=== PATIENT | female | born 2000 | race Caucasian/White ===

== ENCOUNTER → 2020-03-14 | Outpatient (CLI) | payer BC ==
--- NOTE | 2020-03-14 18:44 | CONS ---
CONSULTATION DATE OF SERVICE: 03/14/2020 This is a 20-year-old lady who has been evaluated in [facility] for significant excessive daytime sleepiness and snoring. HISTORY OF PRESENT ILLNESS/SLEEP-WAKE EVALUATION: Patient's usual sleep schedule on weekdays is from 11 p.m. to 7 a.m. and on weekends from midnight or 1 a.m. until 8:30 a.m. No problems with falling asleep, although she has a TV in the bedroom. She usually sleeps on the stomach position and snores. She wakes up from sleep up to 4 times with up to 3 episodes of nocturia. Positive history of sleeptalking, episodes of panic attacks at night. In the morning she wakes up tired, falling asleep during the day, may see vivid dreams during naps, which she usually takes at 2 or 3 p.m. up to 2 times a day. She usually does not feel refreshed after naps, but does see some vivid dreams during naps. No history of hypnagogic hallucinations during the night, cataplexy or sleep paralysis. PAST MEDICAL HISTORY: Positive for anxiety and depression. PAST SURGICAL HISTORY: Adenoidectomy and ear tube insertion. MEDICATIONS: Prozac and control pills. SOCIAL HISTORY: Negative for smoking. Alcohol consumption occasional. FAMILY HISTORY: Hypertension, heart problems, emphysema, snoring, diabetes, mental illness, arthritis. REVIEW OF SYSTEMS: Multiple awakenings from sleep, significant excessive daytime sleepiness. Morton Sleepiness Scale 15. PHYSICAL EXAMINATION: GENERAL: A pleasant lady without distress. VITAL SIGNS: BP 104/62, HR 82, RR 15, height 5 feet, 1/2 inch, weight 186.4 pounds, body mass index 35.7, temperature 98.2, oxygen saturation at room air 99%. HEENT: PERRLA, EOMI. Evaluation of oropharynx showed tongue protrudes midline. Mallampati II. NECK: Supple. No JVD. Thyroid is not palpable. Neck is 14 inches in circumference. LUNGS: Clear to percussion and to auscultation. Good air exchange. No wheezing or rhonchi. HEART: S1, S2 regular. No murmurs, gallops or rubs. ABDOMEN: Obese. EXTREMITIES: No clubbing or cyanosis. HEAT READER: Awake, alert, and oriented X3. Cranial nerves 2 to 7 intact. There is no fasciculation or atrophy. noted. No focal deficits observed. IMPRESSION: 1. Snoring, multiple awakenings from sleep with nocturia, sleepiness; possible obstructive sleep apnea-hypopnea syndrome. 2. Significant excessive daytime sleepiness. Morton Sleepiness Scale increased at 15. The patient may take up to 2 naps a day with positive history of vivid dreams during naps. Differential diagnosis should include hypersomnia, including narcolepsy without cataplexy. 3. Obesity. BMI 35.7. 4. History of depression and anxiety. 5. Status post adenoidectomy. PLAN: 1. Polysomnography for evaluation of patient's breathing during sleep. 2. CPAP/BiPAP titration if sleep study confirms obstructive sleep apnea-hypopnea syndrome. 3. Preferable position during sleep on the side. 4. No driving if patient feels any sleepiness. 5. I will see patient for follow up visit to explain results of testing and following plan. 6. Multiple sleep latency test if sleep study is negative for obstructive sleep apnea- hypopnea syndrome for objective evaluation of patient's symptoms of significant excessive daytime sleepiness. Thank you very much for allowing me to participate in the management of your patient. Sincerely, Eric Bueno MD, PhD, FAASM Diplomat of [employer] [facility] [place] MMODL / LUAN: [id number] /
== END | disposition home or self-care (01) ==
LOC: SLEEP 15:04
PROVIDERS: ATTEND Internal Medicine
DX: G47.9 Sleep disorder, unspecified (principal); R06.83 Snoring; E66.9 Obesity, unspecified; Z86.59 Personal history of other mental and behavioral disorders; Z98.890 Other specified postprocedural states
CPT/HCPCS: 99211

== ENCOUNTER → 2020-06-26 | Outpatient (CLI) | payer BC ==
--- NOTE | 2020-06-26 20:41 | SFUN ---
SLEEP CENTER FOLLOW UP NOTE DATE OF SERVICE: 06/26/2020 20-year-old lady who has been followed in Sleep Center for treatment of obstructive sleep apnea-hypopnea syndrome and sleepiness. Recently patient had a home sleep apnea test which showed moderate obstructive sleep apnea with apnea-hypopnea index 22.1, and then patient was started on treatment with CPAP. After using CPAP, the patient feels better. Sleepiness is less than before. She feels more alert during the day. Previously Mitchell Sleepiness Scale was 15. Today it is 5. But she still sometimes feels sleepy during the day. I checked her CPAP unit. Range of the pressure 5-20, average pressure 9.1 cm of water, usage 29/30 nights and 18/30 nights more than 4 hours. Average usage 4.4 hours. Apnea- hypopnea index 1.1. MEDICATIONS: Prozac, control pill. PHYSICAL EXAM: Patient in no distress, BP 113/74, HR around 100. RR 15. Weight 189, temp 97.2, oxygen saturation at room air 99%. HEENT: PERRLA, EOMI, evaluation of oropharynx showed tongue protrudes midline. NECK: Supple, no JVD. Thyroid is not palpable. LUNGS: Clear to percussion and to auscultation. Good air exchange. No wheezing or rhonchi. HEART: S1, S2 regular. No murmurs, gallops, or rubs. ABDOMEN: Slightly obese. Soft and nontender. Bowel sounds are present. No organomegaly appreciated. EXTREMITIES: No clubbing or cyanosis. DRAFTING SUPERVISOR: Awake, alert, and oriented X3. Cranial nerves 2 to 7 intact. There is no fasciculation or atrophy. noted. No focal deficits observed. IMPRESSION: 1. Moderate obstructive sleep apnea-hypopnea syndrome. The patient demonstrated borderline compliance with treatment benefitting from treatment, improved her alertness during the day while using CPAP. 2. Obesity. 3. History of depression and anxiety. 4. Status post adenoidectomy. PLAN: 1. Patient will continue to use CPAP equipment every night for the whole night and she should take increased time of using machine. 2. Watching and losing weight. 3. Sleep hygiene with regular time in bed for 7 to have 8 hours. 4. No driving if feeling sleepiness. 5. I will see patient for follow-up visit in several months. If she will continue to have sleepiness, we may consider to proceed with multiple sleep latency test for objective evaluation of her symptoms of sleepiness and if necessary pharmacotherapy, but I believe at the present time it is not necessary and she should increase her time in bed with CPAP. Thank you very much for allowing me to participate in the management of your patient. Sincerely, Eric Bueno MD, PhD, FAASM Diplomat of [employer] [facility] [place] MMODL / YEVGENIYN: [id number] /
== END | disposition home or self-care (01) ==
LOC: SLEEP 14:25
PROVIDERS: ATTEND Internal Medicine
DX: G47.33 Obstructive sleep apnea (adult) (pediatric) (principal); E66.9 Obesity, unspecified; Z86.59 Personal history of other mental and behavioral disorders; Z90.09 Acquired absence of other part of head and neck; Z98.890 Other specified postprocedural states; Z99.89 Dependence on other enabling machines and devices

== ENCOUNTER → 2020-10-23 | Outpatient (CLI) | payer BC ==
--- NOTE | 2020-10-23 22:43 | SFUN ---
SLEEP CENTER FOLLOW UP NOTE DATE OF SERVICE: 10/23/2020 This is a 20-year-old lady who has been followed in Sleep Center for treatment of obstructive sleep apnea-hypopnea syndrome and significant excessive daytime sleepiness. During her previous visit, her Kirklin Sleepiness Scale was 15. The patient is using her CPAP equipment better, most of the nights now. She did not use it for a short period of time during the last month because she had COVID. Kirklin Sleepiness Scale today is 10. I checked her CPAP unit. Range of the pressure is from 5 to 20, average pressure 9.6. Usage is 23/30 nights and 19/30 nights for more than 4 hours. Average usage 5.4 hours per night. Leak is 26 L/minute. Apnea-hypopnea index is 0.7, which is normal. MEDICATIONS: Prozac 60 mg once a day, control pills. PHYSICAL EXAMINATION: GENERAL: A pleasant patient in no distress. VITAL SIGNS: BP 108/70, HR 94, RR 12, height 5 feet 1 inch, weight 187, temperature 97.5, oxygen saturation 98%. BMI 35.7. HEENT: PERRLA, EOMI. Evaluation of oropharynx showed tongue protrudes midline. NECK: Supple. No JVD. Thyroid is not palpable. LUNGS: Clear to percussion and to auscultation. Good air exchange. No wheezing or rhonchi. HEART: S1, S2 regular. No murmurs, gallops or rubs. ABDOMEN: Slightly obese. EXTREMITIES: No clubbing or cyanosis. CANNERY WORKER: Awake, alert, and oriented X3. Cranial nerves 2 to 7 intact. There is no fasciculation or atrophy. noted. No focal deficits observed. IMPRESSION: 1. Obstructive sleep apnea-hypopnea syndrome. The patient demonstrated borderline compliance with treatment, benefitting from treatment. 2. Status post recent COVID-19 infection. 3. Patient improved her alertness but still sometimes feels sleepiness during the day. Kirklin Sleepiness Scale today is 10. Additional possibility for differential diagnosis still includes hypersomnia. 4. Obesity. BMI 35.7. 5. History of depression and anxiety. 6. Status post adenoidectomy. Decision was made that we will not proceed with multiple sleep latency test at the present time. PLAN: 1. On CPAP therapy her alertness improved, so at the present time we will not proceed with multiple sleep latency test. If necessary, we will proceed in the future, depending on her clinical presentation. 2. We will keep CPAP pressure the same. 3. Patient should increase time in bed to at least 7-1/2 to 8 hours. 4. Patient will continue to use PAP equipment every night for the whole night. 5. Precautions related to driving. No driving if feeling sleepiness. 6. I will maintain all necessary prescription for PAP supplies including mask, tube, filters. 7. Watching weight. 8. Follow-up visit in 3 months or earlier if patient has any problems. Thank you very much for allowing me to participate in the management of your patient. Sincerely, Eric Bueno MD, PhD, FAASM Diplomat of [employer] [facility] [place] MMODL / LUAN: [id number] /
== END ==
LOC: SLEEP 13:23
PROVIDERS: ATTEND Internal Medicine
DX: G47.33 Obstructive sleep apnea (adult) (pediatric) (principal); Z99.89 Dependence on other enabling machines and devices; Z86.19 Personal history of other infectious and parasitic diseases; E66.9 Obesity, unspecified; Z68.35 Body mass index [BMI] 35.0-35.9, adult; F32.9 Major depressive disorder, single episode, unspecified; Z98.890 Other specified postprocedural states